=== PATIENT | female | born 1970 | race Caucasian/White ===

== ENCOUNTER → 2022-01-08 | Outpatient (CLI) | payer BC ==
--- NOTE | 2022-01-08 17:52 | CONS ---
CONSULTATION DATE OF SERVICE: 01/08/2022 This 51-year-old lady has been evaluated in [facility] for possible obstructive sleep apnea-hypopnea syndrome. HISTORY OF PRESENT ILLNESS/SLEEP-WAKE EVALUATION: Patient's usual sleep schedule is from 10:30 or 11 p.m. until 6 or 7:30 a.m. Sometimes she has problems with falling asleep, although no TV in bedroom. She usually sleeps on the back position. She snores and wakes up from sleep up to 4 times with 2 episodes of nocturia. Her told her about possible stopped breathing during sleep. No history of hypnagogic hallucinations, sleep paralysis or cataplexy. Occasionally the patient uses a mouth guard because of grinding teeth. PAST MEDICAL HISTORY: Positive for Meniere's disease, hypertension, menopause. PAST SURGICAL HISTORY: Partial hysterectomy, benign tumor removed from the liver. MEDICATIONS: Losartan 25 mg twice a day. SOCIAL HISTORY: Negative for smoking. Alcohol consumption occasional. FAMILY HISTORY: Positive for hypertension, heart problems, sleep apnea. REVIEW OF SYSTEMS: Snoring, multiple awakenings from sleep. [place] Sleepiness Scale is 9. Usually the patient does not take any naps. No fevers. No double vision. No recent chest pain. No shortness of breath. No abdominal pain. No bleeding episodes. No blood in the urine. No seizure episodes. PHYSICAL EXAMINATION: GENERAL: Pleasant lady without distress. VITAL SIGNS: BP 118/82, HR 76, RR 16, height 5 feet 1-1/2 inches, weight 130 pounds, body mass index 24.1, temperature 97.8, oxygen saturation at room air 98%. HEENT: PERRLA, EOMI, evaluation of oropharynx showed tongue protrudes midline. Low position of soft palate; Mallampati III. NECK: Supple, no JVD. Thyroid is not palpable. Neck measures 12-1/2 inches in circumference. LUNGS: Clear to percussion and to auscultation. Good air exchange. No wheezing or rhonchi. HEART: S1, S2 regular. No murmurs, gallops, or rubs. ABDOMEN: Soft and nontender. Bowel sounds are present. No organomegaly appreciated. EXTREMITIES: No clubbing or cyanosis. BULK FILLER: Awake, alert, and oriented X3. Cranial nerves 2 to 7 intact. There is no fasciculation or atrophy. noted. No focal deficits observed. IMPRESSION: 1. Snoring, multiple awakenings from sleep with nocturia, low position of soft palate, Mallampati III, episodes of sleepiness, [place] Sleepiness Scale is 9; possible obstructive sleep apnea-hypopnea syndrome. 2. Hypertension. 3. History of Meniere's disease. 4. Menopause. 5. History of grinding teeth. 6. Status post benign tumor removed from the liver. 7. Status post partial hysterectomy. PLAN: 1. Home sleep apnea test for evaluation of patient's breathing during sleep. 2. CPAP/BiPAP titration if sleep study confirms obstructive sleep apnea-hypopnea syndrome. 3. Preferable position during sleep on the side. 4. No driving if patient feels any sleepiness. 5. I will see patient for follow up visit to explain results of testing and following plan. Thank you very much for referring this patient for consultation. Sincerely, Oren Turpin MD, PhD, FAASM Diplomat of [employer] Sleep Medicine Board of [employer] [facility] [place] MMODL / LINDYN: [id number] /
== END ==
LOC: SLEEP 14:01
PROVIDERS: ATTEND Internal Medicine
DX: G47.8 Other sleep disorders (principal); R06.83 Snoring; R35.1 Nocturia; I10 Essential (primary) hypertension; Z86.69 Personal history of other diseases of the nervous system and sense organs; Z78.0 Asymptomatic menopausal state; G47.63 Sleep related bruxism; Z98.890 Other specified postprocedural states; Z90.711 Acquired absence of uterus with remaining cervical stump
CPT/HCPCS: 99202

== ENCOUNTER → 2022-09-11 | Outpatient (CLI) | payer BC ==
--- NOTE | 2022-09-11 12:23 | P.PN ---
Subjective DATE: 09/11/2022 FOLLOW UP VISIT. Patient with obstructive sleep apnea hypopnea syndrome return to sleep center for follow-up visit. Recently patient had sleep study which documented obstructive sleep apnea hypopnea syndrome. Patient was initiated on PAP therapy and today is first visit after treatment was started. I discussed with patient results of home sleep apnea test in details. Patient was able to use PAP equipment every night for the whole night. Patient sleeps better and feel better during the day while using his CPAP equipment. The patient does not have significant problems with the mask, PAP pressure and humidification. I checked information from PAP unit. PAP unit pressure 5-15, average 7.2 cm H2O. Usage is 90 % for more then 4 hours, average 6.5 hours per night. Leak is to 12.5 l/m, which is in acceptable range. Apnea Hypopnea Index is 0.3, which is perfect. MEDICATIONS:1. Losartan 25 mg twice a day During physical exam: GENERAL: A pleasant patient without any distress. VITAL SIGNS: BP 108/75, HR 94, RR 16 , weight 133.1, temperature 96.8, oxygen saturation at room air 99 . HEENT: PERRLA, EOMI.low position of soft palate, Mallapati 3 . NECK: Supple. No JVD. LUNGS: Clear to percussion and to auscultation. Good air exchange. No wheezing or rhonchi. HEART: S1, S2 regular. ABDOMEN: Soft and nontender.[] EXTREMITIES: No clubbing or cyanosis. ROUGE SIFTER AND MILLER: Awake, alert, and oriented x3. No focal deficit. Impressions: 1. Obstructive sleep apnea-hypopnea syndrome. Patient demonstrated great compliance with treatment, benefiting from treatment. 2. Hypertension. 3. History of Mn[place] disease. 4. Status post benign tumor removed from the liver. 5. Menopause. 6. Status post partial hysterectomy. 7. History of grinding teeth. Plan: 1. Continue using PAP equipment every night for the whole night. I adjusted maximal CPAP pressure down to 12 cm of water. 2. To change air filter at least 1-2 times per month. 3. PAP unit should stay lower then position of the head. 4. Advised patient to remove all remaining water from humidifier canister daily and make it dry after each usage. Refill canister with fresh distilled water before each usage. 5. Sleep hygiene with regular time in bed for at least 8 hours. 6. Precautions related to driving. No driving if feel any sleepiness. 7. I will maintain prescription for PAP supplies including mask, tube, filters. 8. Follow up visit in 6 months or earlier if patient has any problems. 9. Watching weight. Thank you very much for allowing me to participate in the management of your patient. Oren Turpin MD, PhD, FAASM. Diplomat of [place] [employer], Sleep Medicine Board by [place] [employer] [facility] [place]
== END ==
LOC: SLEEP 11:26
PROVIDERS: ATTEND Internal Medicine
DX: G47.33 Obstructive sleep apnea (adult) (pediatric) (principal); I10 Essential (primary) hypertension; Z78.0 Asymptomatic menopausal state; Z98.890 Other specified postprocedural states; G47.63 Sleep related bruxism; Z86.69 Personal history of other diseases of the nervous system and sense organs; Z90.711 Acquired absence of uterus with remaining cervical stump
CPT/HCPCS: 99212